=== PATIENT | male | born 1995 | race Caucasian/White ===

== ENCOUNTER 2021-03-25 10:18 | Emergency (ER) | payer BC, OTHER ==
--- NOTE | 2021-03-25 11:04 | EDM.PDOC ---
ED HPI GENERAL MEDICAL PROBLEM - General Chief Complaint: Lower Extremity Injury/Pain Stated Complaint: RIGHT KNEE PAIN Time Seen by Provider: 03/25/21 10:21 Source of Information: Reports: Patient History Limitations: Reports: No Limitations - History of Present Illness INITIAL COMMENTS - FREE TEXT/NARRATIVE: HISTORY AND PHYSICAL: History of present illness: The patient is a 25-year-old male who presents to the emergency room with complaints of right knee pain and swelling. The patient was working out March 17 when he stressed his right ankle while running on the treadmill. March 18 he noticed swelling and pain to his right ankle. He stated he limped around on the ankle for 2 days without treatment or teli-bqy-uhbzrch pain medication. Then on March 20 he started having right knee pain with associated swelling. By Saturday he felt knee stiffness and had complete resolution of his right ankle swelling and pain. He has never had this before. He denies fever or warmth to the area. Patient states he has mild discomfort. Patient denies any fever, chills, headache, change in vision, syncope or near syncope. Denies any chest pain, back pain, shortness of breath or cough. Denies any abdominal pain, nausea, vomiting, diarrhea, constipation or dysuria. Has not noted any blood in urine or stool. Patient has been eating and drinking approp riately. In the emergency departmen the patient is hemodynamically stable with a heart rate of 82 and a blood pressure of 144/64. He is afebrile with a temperature of 97. Review of systems: As per history of present illness and below otherwise all systems reviewed and negative. Past medical history: As per history of present illness and as reviewed below otherwise noncontributory. Surgical history: As per history of present illness and as reviewed below otherwise noncontributory. Social history: See social history for further information Family history: As per history of present illness and as reviewed below otherwise noncontributory. Physical exam: General: Well developed and well nourished. Alert and orientated x 3. Nontoxic in appearance and in no acute distress. Vital signs are stable and have been reviewed by me. Nursing notes were reviewed. HEENT: Atraumatic, normocephalic, pupils equal and reactive bilaterally, negative for conjunctival pallor or scleral icterus, mucous membranes moist, TMs normal bilaterally, throat clear, neck supple, nontender, trachea midline. No drooling or trismus noted. No meningeal signs. No hot potato voice noted. Lungs: Clear to auscultation bilaterally. No wheezes, rales, or rhonchi. Chest nontender. Normal work of breathing, no accessory muscles used. Heart: S1S2, regular rate and rhythm without overt murmur, gallops, or rubs. No JVD. No peripheral edema Abdomen: Soft, nondistended, nontender. Normoactive bowel sounds. Negative for masses or costovertebral tenderness. Skin: Intact, warm, dry. No lesions or rashes noted. Hematologic: No petechiae or purpra. Mucosa appropriate color and normal nail bed color and refill. Extremities: Right knee edematous upper lateral and medial. Negative valgus and varus stress test. Patient flexion right knee equal to left knee. No erythema or warmth noted. Moves all other extremities per self without difficulty or deficits, negative for cords or calf pain. Neurovascular unremarkable. Neuro: Awake, alert, oriented. Cranial nerves II through XII unremarkable. Cerebellum unremarkable. Motor and sensory unremarkable throughout. Exam nonfocal. Psychiatric: Mood and affect are appropriate. Normal thought process. Answering questions appropriately. Notes: *This patient was seen and evaluated during the 2019 SARS-CoV-2 novel coronavirus pandemic period. Community viral transmission is ongoing at time of this encounter and the emergency department is operating under pandemic response procedures. After examination and discussion the patient is agreeable to a right knee x-ray. Toradol was offered for his discomfort and he declined. Right knee x-ray: IMPRESSION: Joint effusion is noted. No fracture is identified. No dislocation. Joint spaces are well maintained. Case reviewed with Dr. Reddy: I will rohit wrap the patient's right knee and refer to Orthopedic. Rohit wrap to right knee for comfort and joint stabilization to wear until follow-up with orthopedic. The patient is agreeable to the discharge plan and does not wish to have a note for work. He knows to rest his knee and to keep it up. He is advised to avoid exercise until the effusion is resolved and ortho follow up. I have talked with the patient about today's findings, in addition to providing specific details for plan of care. Reassessment at the time of disposition demonstrates that the patient is in no acute distress. The patient is stable for discharge, counseling was provided and we discussed in great detail signs and symptoms that would prompt them to return to the Emergency Department. Me dication, follow up and supportive care measures were reviewed and discussed. Voices understanding and is agreeable to plan of care. Denies any further questions or concerns at this time. Diagnostics: Right knee x-ray Therapeutics:Rohit wrap to right knee for comfort and joint stability to wear until follow up with orthopedic provider Impression: right knee injury Plan: 1. You were evaluated today on an emergent basis. Your right knee pain and swelling with an x-ray. You had mild discomfort and declined Toradol for pain relief. Your x-ray did show some fluid in your joint which could indicate an injury. We will wrap your knee with an rohit wrap. Keep your right knee elevated and you can take an NSAID such as motrin for the pain and swelling. I will give your the number for orthopedics for follow up care. 2. You can alternate Tylenol and ibuprofen as needed for pain and fever management. 3. We encourage you to follow up with your primary care provider and/or recommended specialist in the next few days for re-evaluation and further care/management. 4. If your symptoms should worsen, new symptoms develop or any of the signs and symptoms we discussed should arise please return to the emergency room or call 911 (if needed). Definitive disposition and diagnosis as appropriate pending reevaluation and review of above. Right Knee Pain Score (Numeric/FACES): 5 - Related Data Allergies Allergy/AdvReac Type Severity Reaction Status Date / Time No Known Allergies Allergy Verified 03/25/21 10:29 Home Meds: Home Meds . [No Known Home Meds] 03/25/21 [History] Past Medical History - Infectious Disease History Infectious Disease History: Reports: None Social & Family History - Tobacco Use Tobacco Use Status *Q: Never Tobacco User - Caffeine Use Caffeine Use: Reports: Coffee, Energy Drinks, Soda, Tea - Recreational Drug Use Recreational Drug Use: No Review of Systems - Review of Systems Review Of Systems: Comprehensive ROS is negative, except as noted in HPI. ED EXAM, GENERAL - Physical Exam Exam: See Below (See dictation) Course - Vital Signs Last Recorded V/S: Last Vital Signs Temp 97.0 F 03/25/21 10:30 Pulse 81 03/25/21 11:24 Resp 18 03/25/21 11:24 BP 163/76 H 03/25/21 11:24 Pulse Ox 97 03/25/21 11:24 - Orders/Labs/Meds Orders: Active Orders 24 hr Category Date Time Status DME for Discharge [COMM] Stat Oth 03/25/21 11:33 Ordered Departure - Departure Time of Disposition: 11:32 Disposition: Home, Self-Care 01 Condition: Good Clinical Impression: Knee injury Qualifiers: Encounter type: initial encounter Laterality: right Qualified Code(s): S89.91XA - Unspecified injury of right lower leg, initial encounter - Discharge Information *PRESCRIPTION DRUG MONITORING PROGRAM REVIEWED*: Not Applicable *COPY OF PRESCRIPTION DRUG MONITORING REPORT IN PATIENT MAR: Not Applicable Instructions: Knee Sprain, Adult, Tnee-be-Nxog Referrals: PCP,None [Primary Care Provider] - Forms: ED Department Discharge Additional Instructions: The following information is given to patients seen in the emergency department who are being discharged to home. This information is to outline your options for follow-up care. We provide all patients seen in our emergency department with a follow-up referral. The need for follow-up, as well as the timing and circumstances, are variable depending upon the specifics of your emergency department visit. If you don't have a primary care physician on staff, we will provide you with a referral. We always advise you to contact your personal physician following an emergency department visit to inform them of the circumstance of the visit and for follow-up with them and/or the need for any referrals to a consulting specialist. The emergency department will also refer you to a specialist when appropriate. This referral assures that you have the opportunity for follow-up care with a specialist. All of these measure are taken in an effort to provide you with optimal care, which includes your follow-up. Under all circumstances we always encourage you to contact your private physician who remains a resource for coordinating your care. When calling for follow-up care, please make the office aware that this follow-up is from your recent emergency room visit. If for any reason you are refused follow-up, please contact the [facility] Emergency Department at and asked to speak to the emergency department charge nurse. [facility] [address], [address] [place] [address] [facility] [address] [facility] [address] [place] [id number] Plan: 1. You were evaluated today on an emergent basis. Your right knee pain and swelling with an x-ray. You had mild discomfort and declined Toradol for pain relief. Your x-ray did show some fluid in your joint which could indicate an injury. We will wrap your knee with an rohit wrap. Keep your right knee elevated and you can take an NSAID such as motrin for the pain and swelling. I will give your the number for orthopedics for follow up care. 2. You can alternate Tylenol and ibuprofen as needed for pain and fever management. 3. We encourage you to follow up with your primary care provider and/or recommended specialist in the next few days for re-evaluation and further care/management. 4. If your symptoms should worsen, new symptoms develop or any of the signs and symptoms we discussed should arise please return to the emergency room or call 911 (if needed). Sepsis Event Note (ED) - Evaluation Sepsis Screening Result: No Definite Risk - Focused Exam Vital Signs: Vital Signs Temp Pulse Resp BP Pulse Ox 03/25/21 11:24 81 18 163/76 H 97 03/25/21 10:30 97.0 F 82 18 144/64 H 96 - My Orders Last 24 Hours: My Active Orders 03/25/21 11:33 DME for Discharge [COMM] Stat - Assessment/Plan Last 24 Hours: My Active Orders 03/25/21 11:33 DME for Discharge [COMM] Stat
--- NOTE | 2021-03-25 11:26 | CR ---
INDICATION: Pain and swelling. TECHNIQUE: Three views of the right knee. COMPARISON: None. IMPRESSION: Joint effusion is noted. No fracture is identified. No dislocation. Joint spaces are well maintained. Dictated by Fredi Paul MD @ 03/25/2021 11:25:11 AM Dictated by: Fredi Paul MD @ 03/25/2021 11:25:18 (Electronically Signed)
== END 2021-03-25 12:01 | disposition home or self-care (01) ==
LOC: MW.ED 10:18
DX: S89.91XA Unspecified injury of right lower leg, initial encounter (principal); X58.XXXA Exposure to other specified factors, initial encounter; Y93.02 Activity, running
CPT/HCPCS: 73562-26-RT; 73562-RT; 99283; 99283-25